=== PATIENT | female | born 1995 | race American Indian/Alaskan Native ===

== ENCOUNTER 2021-12-16 10:04 | Emergency (ER) | payer OTHER ==
[2021-12-16] MEDS ORDERED: ACETAMINOPHEN 500 MG TAB PO ONE (11:56)
--- NOTE | 2021-12-16 12:00 | Emergency Department Report ---
ED Female HPI - General Stated complaint: VAGINAL BLEEDING Time Seen by Provider: 12/16/21 11:49 Source: patient Mode of arrival: Ambulatory Limitations: No Limitations - History of Present Illness Initial comments: Chief complaint: "I am cramping and bleeding." HPI: This is a 26 yo with hx of hyperthyroidism who presents with pelvic cramping and vaginal bleeding. Vaginal bleeding began 2 weeks ago. Pelvic cramping began last night. Bleeding is less than menstrual flow. Severe pelvic cramping last night. Now pain is 1 out of 10 in severity. She estimates that she is 6 weeks . MD Complaint: vaginal bleeding, pelvic pain -: Gradual, days(s) (1 day pelvic cramps), week(s) (2 weeks of bleeding) Severity: moderate Quality: cramping Consistency: intermittent Improves with: none Worsens with: none Are you Now?: Yes - Related Data Home Medications Medication Instructions Recorded Confirmed Last Taken Atenolol 25 tab PO DAILY 12/16/21 12/16/21 Unknown Allergies Allergy/AdvReac Type Severity Reaction Status Date / Time chloroquine Allergy Mild Itching Verified 12/16/21 11:48 ED Review of Systems ROS: Stated complaint: VAGINAL BLEEDING Other details as noted in HPI Comment: All other systems reviewed and negative Constitutional: denies: chills, fever, malaise ENT: denies: throat pain Respiratory: denies: cough, shortness of breath Cardiovascular: denies: chest pain, palpitations, dyspnea on exertion Gastrointestinal: abdominal pain. denies: nausea, vomiting, diarrhea Skin: denies: rash, lesions Neurological: denies: headache ED Past Medical Hx - Past Medical History Previous Medical History?: Yes Additional medical history: Hyperthyroidism - Surgical History Past Surgical History?: No - Family History Family history: hypertension - Social History Smoking Status: Never Smoker Substance Use Type: None - Medications Home Medications: Home Medications Medication Instructions Recorded Confirmed Last Taken Type Atenolol 25 tab PO DAILY 12/16/21 12/16/21 Unknown History ED Physical Exam - General Limitations: No Limitations General appearance: alert, in no apparent distress - Head Head exam: Present: atraumatic, normocephalic - Eye Eye exam: Present: normal appearance - ENT ENT exam: Present: mucous membranes moist - Neck Neck exam: Present: normal inspection, full ROM - Respiratory Respiratory exam: Present: normal lung sounds bilaterally. Absent: respiratory distress, wheezes, rales, rhonchi - Cardiovascular Cardiovascular Exam: Present: regular rate, normal rhythm, normal heart sounds. Absent: systolic murmur, diastolic murmur, rubs, gallop - GI/Abdominal GI/Abdominal exam: Present: soft, normal bowel sounds. Absent: distended, tenderness, guarding, rebound - Extremities Exam Extremities exam: Present: normal inspection - Neurological Exam Neurological exam: Present: alert, oriented X3 - Psychiatric Psychiatric exam: Present: normal affect, normal mood - Skin Skin exam: Present: warm, dry, intact, normal color. Absent: rash ED Course Vital Signs 12/16/21 12/16/21 12/16/21 11:45 11:54 12:01 Temperature 98.3 F Pulse Rate 81 100 H 102 H Respiratory 18 15 15 Rate Blood Pressure 133/80 133/80 Blood Pressure 133/80 [Left] O2 Sat by Pulse 100 Oximetry 12/16/21 12/16/21 12/16/21 12:15 12:45 12:46 Temperature Pulse Rate 84 Respiratory 15 21 17 Rate Blood Pressure 122/84 122/84 Blood Pressure [Left] O2 Sat by Pulse 100 100 Oximetry 12/16/21 12/16/21 12/16/21 12:48 13:01 13:03 Temperature Pulse Rate 95 H Respiratory 10 L 16 Rate Blood Pressure 134/86 Blood Pressure 134/86 [Left] O2 Sat by Pulse 100 100 100 Oximetry 12/16/21 12/16/21 12/16/21 13:15 13:31 13:45 Temperature Pulse Rate Respiratory 20 19 17 Rate Blood Pressure 133/80 127/80 136/79 Blood Pressure [Left] O2 Sat by Pulse 100 100 100 Oximetry 12/16/21 12/16/21 12/16/21 14:01 14:15 14:31 Temperature Pulse Rate Respiratory 12 19 19 Rate Blood Pressure 138/88 113/63 118/74 Blood Pressure [Left] O2 Sat by Pulse 100 100 99 Oximetry 12/16/21 12/16/21 12/16/21 14:45 15:01 15:15 Temperature Pulse Rate Respiratory 13 17 13 Rate Blood Pressure 116/72 131/80 134/85 Blood Pressure [Left] O2 Sat by Pulse 100 100 100 Oximetry 12/16/21 12/16/21 12/16/21 15:31 15:45 16:00 Temperature Pulse Rate Respiratory 19 20 18 Rate Blood Pressure 130/89 137/83 137/83 Blood Pressure [Left] O2 Sat by Pulse 100 100 Oximetry 12/16/21 16:30 Temperature Pulse Rate Respiratory Rate Blood Pressure 137/83 Blood Pressure [Left] O2 Sat by Pulse 83 L Oximetry ED Medical Decision Making - Lab Data Result diagrams: 12/16/21 12:49 12/16/21 12:49 - Radiology Data Radiology results: report reviewed Patient Name: ASHLIE GOODMAN Gender: Female Date of : 1995 Referring Provider: INDU NATH Organization: [facility] Accession Number: [id number] Requested Date: December 16, 2021 11:58 Report Status: Final Requested Procedure: 1 Procedure Description: US OB transvaginal Modality: US Findings Reporting MD: Juan Carlos Gates Dictation Time: December 16, 2021 12:08 Storage Manager: Not available Mass Spectroscopist Date: ULTRASOUND PELVIS INDICATION: pelvic pain. TECHNIQUE: Transabdominal and Transvaginal. Duplex Color Doppler used: Yes. COMPARISON: None available FINDINGS: Uterus: Present. Size: 7.6 x 3.2 x 4.3 cm. Endometrial complex: Normal measuring 0.7 cm. No intrauterine . Mass lesions: None. Additional findings: None. Right Ovary -- 1.9 x 2.3 x 2.5 Blood flow: Normal. Cyst or mass: None. Left Ovary-- 3.7 x 1.4 x 3.1 Blood flow: Normal. Cyst or mass: 1.6 cm physiologic appearing cyst. Urinary Bladder: Normal. Free Fluid: None. Additional Findings: None. IMPRESSION: 1. No intrauterine or suspicious adnexal abnormality. 2. Small physiologic appearing cyst left ovary. Signer Name: Juan Carlos Gates MD Signed: 12/16/2021 12:08 PM Workstation Name: [id number] Patient Name: ASHLIE GOODMAN Gender: Female Date of : 1995 Referring Provider: INDU NATH Organization: [facility] Accession Number: [id number] Requested Date: December 16, 2021 11:58 Report Status: Final Requested Procedure: 1 Procedure Description: US OB transvaginal Modality: US Findings Reporting MD: Juan Carlos Gates Dictation Time: December 16, 2021 12:08 Storage Manager: Not available Mass Spectroscopist Date: ULTRASOUND PELVIS INDICATION: pelvic pain. TECHNIQUE: Transabdominal and Transvaginal. Duplex Color Doppler used: Yes. COMPARISON: None available FINDINGS: Uterus: Present. Size: 7.6 x 3.2 x 4.3 cm. Endometrial complex: Normal measuring 0.7 cm. No intrauterine . Mass lesions: None. Additional findings: None. Right Ovary -- 1.9 x 2.3 x 2.5 Blood flow: Normal. Cyst or mass: None. Left Ovary-- 3.7 x 1.4 x 3.1 Blood flow: Normal. Cyst or mass: 1.6 cm physiologic appearing cyst. Urinary Bladder: Normal. Free Fluid: None. Additional Findings: None. IMPRESSION: 1. No intrauterine or suspicious adnexal abnormality. 2. Small physiologic appearing cyst left ovary. Signer Name: Juan Carlos Gates MD Signed: 12/16/2021 12:08 PM Workstation Name: [email or web address] - Medical Decision Making Spontaneous miscarriage: With 2 weeks of bleeding, I have low suspicion of her . Currently awaiting serum quantitative hcg. Patient's blood type O+. No significant anemia. CBC chemistry within normal limits. I informed the patient and her significant other at the diagnosis. Critical care attestation.: If time is entered above; I have spent that time in minutes in the direct care of this critically ill patient, excluding procedure time. ED Disposition Clinical Impression: Spontaneous miscarriage Disposition: HOME / SELF CARE / HOMELESS Is pt being admited?: No Does the pt Need Aspirin: No Condition: Stable Instructions: Miscarriage, [id number] Referrals: ALEX ORTA MD [Staff Physician] - 3-5 Days Forms: Work/School Release Form(ED)
--- NOTE | 2021-12-16 13:12 | Ultrasound Report ---
ULTRASOUND PELVIS INDICATION: pelvic pain. TECHNIQUE: Transabdominal and Transvaginal. Duplex Color Doppler used: Yes. COMPARISON: None available FINDINGS: Uterus: Present. Size: 7.6 x 3.2 x 4.3 cm. Endometrial complex: Normal measuring 0.7 cm. No intrauterine . Mass lesions: None. Additional findings: None. Right Ovary -- 1.9 x 2.3 x 2.5 Blood flow: Normal. Cyst or mass: None. Left Ovary-- 3.7 x 1.4 x 3.1 Blood flow: Normal. Cyst or mass: 1.6 cm physiologic appearing cyst. Urinary Bladder: Normal. Free Fluid: None. Additional Findings: None. IMPRESSION: 1. No intrauterine or suspicious adnexal abnormality. 2. Small physiologic appearing cyst left ovary. Signer Name: Juan Carlos Gates MD Signed: 12/16/2021 1:08 PM Workstation Name: [email or web address]
[2021-12-16 13:37] LABS: Basophils % (Auto) 0.3 % (0.0-1.8); Eosinophils % (Auto) 0.7 % (0.0-4.3); Hematocrit 35.9 % (30.3-42.9); Hemoglobin 11.9 gm/dl (10.1-14.3); Lymphocytes % (Auto) 34.9 % (13.4-35.0); Mean Corpuscular HGB Conc 33 % (30-34); Mean Corpuscular Volume 88 fl (79-97); Monocytes # (Auto) 0.5 K/mm3 (0.0-0.8); Monocytes % (Auto) 8.1 % (0.0-7.3); Platelet Count 263 K/mm3 (140-440); Red Blood Count 4.08 M/mm3 (3.65-5.03); Red Cell Distribution Width 13.1 % (13.2-15.2)
[2021-12-16 14:03] LABS: Blood Urea Nitrogen 8 mg/dL (7-17); Calcium 8.6 mg/dL (8.4-10.2); Hemolysis Index 49
[2021-12-16 14:23] LABS: BUN/Creatinine Ratio 11
[2021-12-16 16:47] VITALS: BP 137/83
== END 2021-12-16 16:00 | disposition home or self-care (01) ==
LOC: ED 10:04
DX: O03.9 Complete or unspecified spontaneous abortion without complication (principal); Z3A.01 Less than 8 weeks gestation of pregnancy; Z88.8 Allergy status to other drugs, medicaments and biological substances
CPT/HCPCS: 36415; 76801; 76817; 80048; 84702; 85025; 86850; 86900; 86901; 99284